=== PATIENT | male | born 1955 | race Caucasian/White ===

== ENCOUNTER 2020-03-09 06:58 | Outpatient (NON) | payer SELFPAY ==
[2020-03-09 18:22] LABS: SARS-CoV-2 RNA PCR Positive
== END 2020-03-09 06:59 ==
PROVIDERS: PCP Family Medicine; Visit Provider Family Medicine
DX: U07.1 COVID-19 (principal)
CPT/HCPCS: 87635; C9803; U0003

== ENCOUNTER → 2021-01-26 14:15 | Outpatient (CLI) | payer OTHER, SELFPAY ==
--- NOTE | ~2021-01-26 | XR_ITS ---
XR_CERV2-3V_CR 01/26/2021 15:40 Indication: Neck pain Procedure: 3 views cervical spine Comparison: Thoracic spine dated 01/26/2021 Findings: Osteopenia. Vertebral body heights are maintained. No significant prevertebral soft tissue abnormality. There is mild multilevel facet degenerative change. Odontoid process within normal limit s. Lateral masses are aligned. Lung apices are normal. No acute fracture or traumatic malalignment. Impression: 1: Mild cervical spondylosis. Reviewed, dictated and finalized at location B. Impression: 1: Mild cervical spondylosis.
--- NOTE | ~2021-01-26 | XR_ITS ---
XR shoulder RT min 2V 01/26/2021 15:35 Indication: Chronic right shoulder pain Procedure: 4 views right shoulder Comparison: No prior studies for comparison. Findings: There is polyarticular osteoarthritis of the acromioclavicular and glenohumeral joints. The re is healed right clavicular fracture. No acute fracture or traumatic malalignment. Osteopenia. 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 Reviewed, dictated and finalized at location B. 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
--- NOTE | ~2021-01-26 | XR_ITS ---
XR lumbar spine 2-3V 01/26/2021 15:35 Indication: Chronic low back pain Procedure: 3 views lumbar spine Comparison: No prior studies for comparison. Findings: There is mild superior endplate compression fracture of L2, age indeterminate. Probable mil d superior endplate compression deformity of L1 as well. Evaluation limited by osteopenia. There is d isc narrowing at L4-5 and L5-S1. There is moderate facet hypertrophy at these levels. Impression: 1: Superior endplate compression deformities of L1 and L2, age indeterminate. Consider correlation wi CT or MRI. 2: Mild lumbar spondylosis. Reviewed, dictated and finalized at location B. Impression: 1: Superior endplate compression deformities of L1 and L2, age indeterminate. C onsider correlation with CT or MRI. 2: Mild lumbar spondylosis.
--- NOTE | ~2021-01-26 | XR_ITS ---
XR thoracic spine 3V 01/26/2021 15:35 Indication: Back pain Procedure: 3 views thoracic spine Comparison: No prior studies for comparison. Findings: There are compression deformities of T7, T8, T9, T10, T11, T12, L1 and L2 which are most li jing chronic given the osteopenia and multilevel abnormality, although acute fracture is not excluded . There are several calcified granulomas in the lung parenchyma and mediastinum. Heart size upper nor mal. There is subsegmental atelectasis left lung base. Impression: 1: Multiple compression fractures of the thoracic and lumbar spine, most likely chronic, although it acute fracture is not excluded. Consider correlation with CT or MRI as clinically indicated. Reviewed, dictated and finalized at location B. Impression: 1: Multiple compression fractures of the thoracic and lumbar spine, most likely chronic, although it acute fracture is not excluded. Consider correlation with CT or MRI as clinically indicated.
--- NOTE | ~2021-01-26 | XR_ITS ---
XR hip RT min 2V 01/26/2021 15:35 Indication: Hip pain Procedure: 2 views right hip Comparison: No prior studies for comparison. Findings: No fracture, subluxation or dislocation. Mild osteoarthritis of the right hip. No significa nt soft tissue abnormality. No foreign bodies. Impression: 1: Mild osteoarthritis of the right hip. Reviewed, dictated and finalized at location B. Impression: 1: Mild osteoarthritis of the right hip.
== END ==
PROVIDERS: PCP Physician Assistant; Visit Provider Physician Assistant
DX: M47.896 Other spondylosis, lumbar region (principal); M47.892 Other spondylosis, cervical region; M19.011 Primary osteoarthritis, right shoulder; M16.11 Unilateral primary osteoarthritis, right hip
CPT/HCPCS: 72040; 72072; 72100; 73030; 73502

== ENCOUNTER → 2021-02-22 12:58 | Outpatient (CLI) | payer OTHER, SELFPAY ==
--- NOTE | ~2021-02-22 | MR_ITS ---
EXAMINATION: MR lumbar spine wo con EXAM DATE: 02/22/2021 14:25 INDICATION: Low back pain, compression deformity. TECHNIQUE: Multi-sequential, multiplanar MR images of the lumbar spine were obtained without contrast . Sagittal T1, T2, T2 fat saturation images. Axial T2 weighted images. Correlation is made to lumba r x-ray 01/26/2021. FINDINGS: Mild to moderate compression fracture of L2 without edema; this finding is chronic. There i s mild thoracolumbar dextroscoliosis. There is no focal acute air space disease. There is severe splenomegaly, spleen measuring 22 cm in craniocaudal dimension, and somewhat diffusel y dark bone marrow signal probably high red bone marrow content, reconversion to red marrow due to in creased red cell production demand, such as anemia (hemolytic?), myeloproliferative disorders, or hem osiderosis. Spleen was normal in size on abdomen pelvis CT from 2007. Mild diffuse lumbar disc disease. The vertebral bodies are aligned in the AP dimension. The conus med ullaris terminates at the L1 level and has normal signal intensity and morphology. Paraspinal soft ti ssue is unremarkable. Level by level evaluation: T12-L1: Disc does not extend beyond the endplate margin. Facet arthropathy: Mild. Neural foraminal stenosis: No stenosis. Central canal stenosis: No stenosis. L1-L2: Disc does not extend beyond the endplate margin. Facet arthropathy: Mild. Neural foraminal stenosis: No stenosis. Central canal stenosis: No stenosis. L2-L3: Disc does not extend beyond the endplate margin. Facet arthropathy: Mild. Neural foraminal stenosis: No stenosis. Central canal stenosis: No stenosis. L3-L4: There is a minimal diffuse disc bulge. Facet arthropathy: Mild to moderate. Neural foraminal stenosis: Minimal left. Central canal stenosis: Mild. L4-L5: There is a mild diffuse disc bulge. Facet arthropathy: Mild to moderate. Neural foraminal stenosis: Mild to moderate bilateral, right greater than left. Central canal stenosis: Mild to moderate. L5-S1: There is a mild to moderate diffuse disc bulge. Facet arthropathy: Mild to moderate. Neural foraminal stenosis: Mild right. Central canal stenosis: Mild. IMPRESSION: 1. Splenomegaly and somewhat diffusely dark bone marrow signal suggesting red marrow conversion. Cli nical correlation for hemolytic anemia or other process that could cause both these findings. 2. Chronic L2 compression fracture. 3. Mild to moderate lumbar spondylosis. Reviewed, dictated and finalized at location B. [employer] IMPRESSION: 1. Splenomegaly and somewhat diffusely dark bone marrow signal suggesting red marrow conversion. Clinical correlation for hemolytic anemia or other process t hat could cause both these findings. 2. Chronic L2 compression fracture. 3. Mild to moderate lumbar spondylosis.
== END ==
PROVIDERS: PCP Physician Assistant; Visit Provider Physician Assistant
DX: M43.9 Deforming dorsopathy, unspecified (principal); R16.1 Splenomegaly, not elsewhere classified; M48.56XA Collapsed vertebra, not elsewhere classified, lumbar region, initial encounter for fracture; M47.816 Spondylosis without myelopathy or radiculopathy, lumbar region
CPT/HCPCS: 72148

== ENCOUNTER → 2021-03-01 14:47 | Outpatient (CLI) | payer OTHER, SELFPAY ==
--- NOTE | ~2021-03-01 | XR_ITS ---
EXAMINATION: XR wrist LT min 3V DATE: 03/01/2021 15:15 INDICATION: Left wrist pain and swelling. TECHNIQUE: 4 views of left wrist were obtained. COMPARISON: None. FINDINGS: Bone alignment is normal. No fracture. There is mild osteoarthritis of first carpometacarpa l joint. IMPRESSION: 1. Mild osteoarthritis of first carpometacarpal joint. Reviewed, dictated and finalized at location B. E [employer]
== END ==
PROVIDERS: PCP Physician Assistant; Visit Provider Physician Assistant
DX: M79.89 Other specified soft tissue disorders (principal); M19.032 Primary osteoarthritis, left wrist
CPT/HCPCS: 73110

== ENCOUNTER 2024-02-03 14:17 | Outpatient (CLI) | payer OTHER, SELFPAY ==
--- NOTE | ~2024-02-03 | XR_ITS ---
EXAMINATION: XR cervical spine 4-5V DATE: 02/03/2024 14:56 INDICATION: Neck pain. TECHNIQUE: 5 views of cervical spine including standing views were obtained. COMPARISON: Cervical spine radiographs 01/26/2021 FINDINGS: There is 11 degrees dextroscoliosis of cervicothoracic spine. The lower cervical spine is n ot well visualized on the lateral view. Vertebral body heights are normal. There is moderately decrea sed disc height at C3-C4. There is multilevel mild facet joint osteoarthritis. There is mild central canal stenosis at C3-C4. No prevertebral soft tissue swelling. IMPRESSION: 1. Moderate spondylosis at C3-C4. Lower cervical spine not well visualized on the lateral view. 2. Cervicothoracic dextroscoliosis. Reviewed, dictated and finalized at location B. IMPRESSION: 1. Moderate spondylosis at C3-C4. Lower cervical spine not well visualized on t he lateral view. 2. Cervicothoracic dextroscoliosis.
--- NOTE | ~2024-02-03 | XR_ITS ---
EXAMINATION: XR thoracic spine 3V DATE: 02/03/2024 14:56 INDICATION: Spine pain. Neck pain. TECHNIQUE: 3 views of thoracic spine were obtained. COMPARISON: Thoracic spine radiographs 01/26/2021 FINDINGS: There is kyphosis of thoracic spine. There is mild chronic anterior wedging of T6-T11 verte bral bodies. Intervertebral disc heights are normal. There is mild atelectasis at left lung base. IMPRESSION: 1. Thoracic kyphosis. Reviewed, dictated and finalized at location B. IMPRESSION: 1. Thoracic kyphosis.
--- NOTE | ~2024-02-03 | XR_ITS ---
EXAMINATION: XR shoulder RT min 2V DATE: 02/03/2024 14:56 INDICATION: Right shoulder pain. TECHNIQUE: 4 views of right shoulder were obtained. COMPARISON: Right shoulder radiographs 01/26/2021 FINDINGS: Bone alignment is normal. There is an old healed fracture of the clavicle. There is severe osteoarthritis of acromioclavicular joint and moderate osteoarthritis of glenohumeral joint. IMPRESSION: 1. Polyarticular osteoarthritis. Reviewed, dictated and finalized at location B.
== END 2024-02-03 14:18 | disposition home or self-care (01) ==
LOC: MICIMG 14:19
PROVIDERS: PCP Physician Assistant; Visit Provider Physician Assistant
DX: M54.2 Cervicalgia (principal); M19.011 Primary osteoarthritis, right shoulder
CPT/HCPCS: 72050; 72072; 73030

== ENCOUNTER 2025-02-24 09:18 | Outpatient (CLI) | payer OTHER, SELFPAY ==
--- NOTE | ~2025-02-24 | DEXA_ITS ---
Bone Density Report Name: SOTERO BATISTA Age: 69 Sex: Male Ethnicity: White Date of : 1955 Indication: height loss; prior fracture; cancer; Referring Provider: TRACI, FILOMENA Study: Bone densitometry was performed. Exam Date: February 24, 2025 Accession number: [id number] Bone Density: Region BMD T-score Z-score Classification AP Spine(L1-L4) 1.327 2.1 3.0 Normal Femoral Neck (Left) 0.845 -0.6 0.5 Normal Total Hip (Left) 1.027 0.0 0.6 Normal World Health Organization criteria for BMD impression classify patients as: Normal (T-score at or above -1.0), Osteopenia (T-score between -1.0 and -2.5), or Osteoporosis (T-score at or below -2.5). 10-year Fracture Risk: FRAX not reported because: All T-scores for Spine Total, Hip Total, Femoral Neck at or above -1.0 Prior hip or vertebral fracture Clinical Information Provided by Patient: Have had a previous hip or vertebral fracture Has had a low trauma fracture Has used the following medications: Vitamin D Has the following medical conditions: Cancer, blood cancer Patient maximum height was 73 Drinks caffeinated beverages Impression: The patient has normal bone mass. The patient has risk factors, including: previous fracture. Discussion: INCREASED RISK OF FRACTURE DUE TO HISTORY OF LOW TRAUMA FRACTURE. The patient's previous fracture puts the patient at high risk of a future fracture. In untreated patients, the risk of osteoporotic fracture increases approximately two-fold for each 1.0 SD decrease in T-score. Low bone density is not the only risk factor for fracture; also consider factors such as patient's age, frailty or poor health, risk of falling, risk of injury, previous osteoporotic fracture, family history of osteoporosis, cigarette smoking, low body weight, etc. Not everyone with a low trauma fracture has osteoporosis; osteomalacia and other metabolic bone disorders should also be considered. Patients who have osteoporosis should be evaluated for specific diseases and conditions (secondary causes) that may cause or contribute to bone loss and fracture risk. National Osteoporosis Foundation (NOF) recommends pharmacologic intervention for patients with a prior low trauma hip or vertebral fracture regardless of BMD T-score. The patient should follow a healthful lifestyle (good nutrition with adequate calcium and vitamin D, and appropriate weight-bearing exercise). Follow-Up: Consider a repeat BMD and Vertebral Fracture Assessment (VFA) exam in 2 years or sooner if medically necessary, to reassess this patient's status. Reported by: CARMELA on 02/24/2025 9:55:00 AM. Reviewed, dictated and finalized at location A.
== END 2025-02-24 09:19 | disposition home or self-care (01) ==
LOC: MICIMG 09:19
PROVIDERS: PCP Physician Assistant; Visit Provider Physician Assistant
DX: S22.000S Wedge compression fracture of unspecified thoracic vertebra, sequela (principal); X58.XXXS Exposure to other specified factors, sequela
CPT/HCPCS: 77080